=== PATIENT | male | born 1985 | race Hispanic/Latino ===

== ENCOUNTER 2020-10-25 12:54 | Emergency (ER) | payer BC ==
[2020-10-25 14:13] LABS: Bilirubin Neg (Negative); Blood, Urine Negative (Negative); Clarity Clear (Clear); Glucose, Urine (Dipstick) Normal (Negative); Ketone, Urine Negative (Negative); Leukocyte Negative (Negative); Nitrite Negative (Negative); Protein, Urine (Dipstick) Negative (Neg-Trace); Urobilinogen Normal mg/dL (Less than 2)
[2020-10-27 17:16] LABS: Chlam.trachomatis by PCR,Urine Not Detected (NotDetected)
== END 2020-10-25 14:30 | disposition home or self-care (01) ==
LOC: CSHERS 12:54
DX: N50.3 Cyst of epididymis (principal)
CPT/HCPCS: 76870; 81003; 87491; 87591; 93976